=== PATIENT | male | born 1980 | race Two or more races ===

== ENCOUNTER 2024-09-09 11:36 | Inpatient (IN) | payer MEDICAID ==
[~2024-09-09] VITALS: Ht 177.8 cm; Wt 79.4 kg
[2024-09-09 12:26] LABS: CALCIUM, SERUM 9.6 mg/dL (8.5-10.1); CREATININE 0.9 mg/dL (0.6-1.3); POTASSIUM 3.3 mmol/L (3.5-5.1)
[2024-09-09 12:27] LABS: BASOPHILS # (AUTO) 0.1 K/uL (0.0-0.2); BASOPHILS % (AUTO) 0.7 % (0.0-2.0); EOSINOPHILS % (AUTO) 0.6 % (0.0-6.0); HEMATOCRIT 41 % (39-51); HEMOGLOBIN 14.4 g/dL (13.5-17.5); INR 0.98 (0.91-1.10); LYMPHOCYTES # (AUTO) 0.3 K/uL (0.8-4.8); LYMPHOCYTES % (AUTO) 3.8 % (20.0-44.0); MEAN CORPUSCULAR HEMOGLOBIN 35 PG (26.0-33.0); MEAN CORPUSCULAR HGB CONC 35 g/dl (31.0-36.0); MEAN CORPUSCULAR VOLUME 99 fL (80-96); MONOCYTES # (AUTO) 1.4 K/uL (0.1-1.30); MONOCYTES % (AUTO) 17.9 % (2.0-12.0); NEUTROPHILS # (AUTO) 6.1 K/uL (1.8-8.9); PLATELET COUNT (AUTO) 143 K/uL (150-450); PROTHROMBIN TIME 10.4 SECS (9.2-11.1); RED BLOOD CELL COUNT(AUTO) 4.14 MIL/uL (4.5-6.0); RED CELL DISTRIBUTION WIDTH 13.3 % (11.5-15.0); WHITE BLOOD COUNT (AUTO) 7.9 K/uL (4.3-11.0)
[2024-09-09 12:37] LABS: ALBUMIN 3.7 g/dL (3.4-5.0); BILIRUBIN,DIRECT 0.8 mg/dL (0.0-0.2); BILIRUBIN,TOTAL 1.8 mg/dL (0.2-1.0); C-REACTIVE PROTEIN 20.76 mg/dL (0.0-0.30); TOTAL PROTEIN, SERUM 7.7 g/dL (6.4-8.2)
[2024-09-09] MEDS: IV NS 0.9% 1,000 ML BAG IV ONE (14:01)
[2024-09-09] MEDS ORDERED: BACL10TA PO (14:02)
[2024-09-09] MEDS ORDERED: FLUT1BLS14 IH (14:02)
[2024-09-09] MEDS ORDERED: AZEL137S7 BNOSTRILS (14:02)
[2024-09-09] MEDS ORDERED: NALT50TA PO (14:02)
[2024-09-09] MEDS ORDERED: GABA600T12 PO (14:02)
[2024-09-09] MEDS ORDERED: ALBU8.5H8 IH (14:02)
[2024-09-09] MEDS: CEFEPIME 1 GM in IV D5W 50 ML IV ONE (14:17)
[2024-09-09] MEDS ORDERED: Z GUARD REMEDY 4 OZ OINT TP PRN (15:30)
[2024-09-09] MEDS ORDERED: MAG HYDROX/AL HYDROX/SIMETH 30 ML UDC PO PRN (15:30)
[2024-09-09] MEDS ORDERED: ONDANSETRON HCL/PF 4 MG/2 ML VIAL IVP PRN (15:30)
[2024-09-09] MEDS ORDERED: ACETAMINOPHEN 325 MG TABLET PO PRN (15:30)
[2024-09-09] MEDS ORDERED: MAGNESIUM HYDROXIDE 30 ML UDC PO PRN (15:30)
[2024-09-09 16:00] VITALS: BP_SYST 155; BP_SYST 160; BP_DIAS 102; TEMP 98.2; O2SAT 100; O2SAT 98
[2024-09-09] MEDS: POTASSIUM CHLORIDE 20 MEQ TAB.PRT.SR PO ONE (16:54)
[2024-09-09] MEDS: GABAPENTIN 300 MG CAPSULE PO SCH (16:55)
[2024-09-09] MEDS: BACLOFEN (10 MG) 10 MG TABLET PO SCH (16:55)
[2024-09-09] MEDS: IV NS 0.9% 1,000 ML IV SCH (16:58)
[2024-09-09] MEDS ORDERED: ALBUTEROL FS 2.5 MG/3 ML VIAL.NEB NEB PRN (17:00)
[2024-09-09 20:00] VITALS: BP 161/97; TEMP 99.7; O2SAT 98
[2024-09-09 20:45] VITALS: BP 152/88
[2024-09-10] VITALS: BP 155/96; TEMP 98.8; O2SAT 98
[2024-09-10 04:00] VITALS: BP 151/89; TEMP 98.8; O2SAT 99
[2024-09-10 06:49] LABS: BASOPHILS # (AUTO) 0.1 K/uL (0.0-0.2); EOSINOPHILS # (AUTO) 0.1 K/uL (0.0-0.7); EOSINOPHILS % (AUTO) 1.8 % (0.0-6.0); HEMATOCRIT 35 % (39-51); HEMOGLOBIN 12.3 g/dL (13.5-17.5); LYMPHOCYTES # (AUTO) 0.4 K/uL (0.8-4.8); MEAN CORPUSCULAR HEMOGLOBIN 35 PG (26.0-33.0); MEAN CORPUSCULAR HGB CONC 35 g/dl (31.0-36.0); MEAN CORPUSCULAR VOLUME 100 fL (80-96); MONOCYTES # (AUTO) 1.3 K/uL (0.1-1.30); MONOCYTES % (AUTO) 22.9 % (2.0-12.0); NEUTROPHILS # (AUTO) 3.9 K/uL (1.8-8.9); NEUTROPHILS % (AUTO) 67.3 % (43.0-81.0); PLATELET COUNT (AUTO) 128 K/uL (150-450); RED BLOOD CELL COUNT(AUTO) 3.48 MIL/uL (4.5-6.0); RED CELL DISTRIBUTION WIDTH 13.4 % (11.5-15.0); WHITE BLOOD COUNT (AUTO) 5.8 K/uL (4.3-11.0)
[2024-09-10 07:04] LABS: CALCIUM, SERUM 7.9 mg/dL (8.5-10.1); CREATININE 0.6 mg/dL (0.6-1.3); MAGNESIUM 1.7 mg/dL (1.8-2.4); PHOSPHORUS 2.7 mg/dL (2.5-4.9); POTASSIUM 2.9 mmol/L (3.5-5.1)
[2024-09-10 08:00] VITALS: BP 168/103; TEMP 98.6; O2SAT 98
[2024-09-10] MEDS: POTASSIUM CHLORIDE 20 MEQ TAB.PRT.SR PO SCH (08:52)
[2024-09-10] MEDS: FLUTICASONE/VILANTEROL 1 EACH BLST.W.DEV IH SCH (08:52)
[2024-09-10] MEDS ORDERED: NALTREXONE HCL PO SCH (09:00)
[2024-09-10 10:17] LABS: EOSINOPHILS % (MANUAL) 2 % (0-4); LYMPHOCYTES % (MANUAL) 7 % (16-48); MONOCYTES % (MANUAL) 20 % (0-11.0); NEUTROPHILS % (MANUAL) 71 (42-76); PLATELET ESTIMATE DECREASED
[2024-09-10 10:18] LABS: ANISOCYTOSIS 1+
[2024-09-10] MEDS: FLUTICASONE PROPIONATE 16 GM BOTTLE NS SCH (11:18)
[2024-09-10] MEDS ORDERED: BENZOCAINE DENTAL GEL 7.5% 9.9 GM TUBE MM PRN (11:30)
[2024-09-10] MEDS ORDERED: MAGNESIUM OXIDE 400 MG TABLET PO SCH (12:30)
[2024-09-10] MEDS: MAGNESIUM OXIDE 400 MG TABLET PO ONE (14:29)
[2024-09-10] MEDS ORDERED: MORPHINE SULFATE INJ 2 MG/ML DISP.SYRIN IV PRN (15:00)
[2024-09-10] MEDS ORDERED: IBUPROFEN 600 MG TABLET PO PRN (15:30)
== END 2024-09-10 17:51 | disposition left against medical advice (07) | DRG 351 ==
LOC: ER 11:48 → MED 16:27 → TELE 09-10
PROVIDERS: ADMIT Internal Medicine; ATTEND Internal Medicine
DX: M62.82 Rhabdomyolysis (principal); E87.20 Acidosis, unspecified; E87.1 Hypo-osmolality and hyponatremia; E86.0 Dehydration; F10.10 Alcohol abuse, uncomplicated; G62.9 Polyneuropathy, unspecified; J45.909 Unspecified asthma, uncomplicated; R79.89 Other specified abnormal findings of blood chemistry; R74.01 Elevation of levels of liver transaminase levels; Y90.9 Presence of alcohol in blood, level not specified
CPT/HCPCS: 36415; 73564-TC; 73610-TC; 80048-TC; 80076-TC; 82550-TC; 82553; 83605-TC; 83735-TC; 84100-TC; 85025-TC; 85652-TC; 85730-TC; 86140-TC; 87040-TC; 87086-TC; A4223; G0378; J0692; J7030; J7040; J7060